=== PATIENT | female | born 1995 | race Hispanic/Latino ===

== ENCOUNTER 2016-10-18 10:33 | Emergency (ER) | payer MEDICAID, SELFPAY ==
[2016-10-18] MEDS ORDERED: Adacel (T-DAP) 0.5 ML VIAL ONE (11:12)
[2016-10-18] MEDS ORDERED: Triple Antibiotic Oint 1 GM Packet ONE (11:12)
[2016-10-18] MEDS ORDERED: Naproxen 500 MG TAB ONE (11:12)
[2016-10-18] MEDS ORDERED: Cephalexin 500 MG CAP ONE (11:12)
== END 2016-10-18 11:30 | disposition home or self-care (01) ==
LOC: MADERS 10:33
DX: T22.212A Burn of second degree of left forearm, initial encounter (principal); Z87.442 Personal history of urinary calculi; X19.XXXA Contact with other heat and hot substances, initial encounter
CPT/HCPCS: 90715; 99283

== ENCOUNTER 2023-12-03 14:56 | Emergency (ER) | payer MEDICAID, SELFPAY ==
[2023-12-03] MEDS ORDERED: diphenhydrAMINE 50 MG/ML VIAL ONE (16:08)
[2023-12-03] MEDS ORDERED: Acetaminophen 500 MG TAB ONE (16:08)
[2023-12-03] MEDS ORDERED: Ketorolac Tromethamine 30 MG (1 mL) VIAL ONE (16:08)
[2023-12-03] MEDS ORDERED: Sodium Chloride 0.9% 1,000 ML ONE ×2 (16:09→17:11)
[2023-12-03] MEDS ORDERED: Promethazine HCl 25 MG/ML VIAL ONE (16:09)
[2023-12-03 16:11] LABS: INR-International Normal Ratio 1.2; Prothrombin Time 14.9 sec (12.0-14.7)
[2023-12-03 16:12] LABS: PTT 33.1 sec (22.9-36.1)
[2023-12-03 16:13] LABS: BHCG - Serum Negative (NEGATIVE); Pregs Control Background? CLEAR/WHITE (CLR/WHITE); Pregs Control Bar Appear? YES (CONTROL BAR)
[2023-12-03 16:23] LABS: ALT (SGPT) 19 U/L (8-55); AST (SGOT) 16 U/L (5-34); Albumin 3.7 g/dL (3.5-5.0); Alkaline Phosphatase 63 U/L (40-110); Anion Gap 15 mmol/L (10-20); BUN (Urea Nitrogen) 16 mg/dL (7.0-18.7); Bilirubin, Total 0.7 mg/dL (0.2-1.2); Calc. Creatinine Clearance 0 mL/min (70-130); Calcium 8.6 mg/dL (7.8-10.44); Carbon Dioxide 19 mmol/L (22-29); Chloride 107 mmol/L (98-107); Estimated GFR 101; Globulin 3.8 g/dL (2.4-3.5); Glucose 100 mg/dL (70-105); Lipase 30 U/L (8-78); Potassium 3.5 mmol/L (3.5-5.1); Protein, Total 7.5 g/dL (6.0-8.3); Sodium 137 mmol/L (136-145)
[2023-12-03 16:24] LABS: Troponin I Less than 0.010 ng/mL (< 0.028)
[2023-12-03 16:35] LABS: Band 4 % (5-11); Hematocrit 41.8 % (36.0-47.0); Hemoglobin 13.2 g/dL (12.0-16.0); Lymphocytes 8 % (21-51); MDiff Complete? YES; Mean Corpuscular HGB CONC 31.7 g/dL (32.0-36.0); Mean Corpuscular Hemoglobin 27.1 pg (27.0-31.0); Mean Corpuscular Volume 85.6 fl (78.0-98.0); Mean Platelet Volume 8.7 fL (7.4-10.4); Monocytes 3 % (0-10); Neutrophil 75 % (42-75); Platelet Count 155 10x3/uL (130-400); RBC Distribution Width 14.2 % (11.5-14.5); Red Blood Cell (RBC) Count 4.88 mill/uL (4.20-5.40); White Blood Cell (WBC) Count 9.3 10x3/uL (4.8-10.8)
[2023-12-03 16:36] LABS: Manual Diff?? YES; Platelet Adequacy Comment Appears Adequate; RBC Morph Comment Within Normal Limits; Reactive Lymphocytes 10 % (0-10)
[2023-12-03] MEDS ORDERED: Sodium Chloride 0.9% 500 ML ONE (17:11)
[2023-12-03 17:44] LABS: Influenza A by NAA Not Detected (NotDetected); Influenza B by NAA Not Detected (NotDetected); SARS-CoV-2 NAA Rapid Test Not Detected (NotDetected)
[2023-12-03 18:13] LABS: Bilirubin Negative (Negative); Blood, Urine Negative (Negative); Glucose, Urine (Dipstick) Negative (Negative); Ketone, Urine Negative (Negative); Leukocyte Moderate (Negative); Nitrite Negative (Negative); Protein, Urine (Dipstick) Negative (Neg-Trace); Specific Gravity, Urine 1.015 (1.005-1.030); Urobilinogen 0.2 mg/dL (Less than 2)
[2023-12-03 18:20] LABS: Clarity Hazy (Clear)
[2023-12-03 18:27] LABS: Bacteria/HPF Rare-Few HPF (None Seen); CAUTI Indications for Culture Dysuria,urgency,freq; Mucous/LPF Few LPF (<2+); RBC/HPF None Seen HPF (0-3); Urine Culture Reflex Yes Yes
[2023-12-03] MEDS ORDERED: Sodium Chloride 0.9% 100 ML ONE (18:40)
[2023-12-03] MEDS ORDERED: cefTRIAXone (ROCEPHIN) 1 GM VIAL ONE (18:40)
== END 2023-12-03 21:11 | disposition home or self-care (01) ==
LOC: MADERS 14:56
DX: N39.0 Urinary tract infection, site not specified (principal); R65.10 Systemic inflammatory response syndrome (SIRS) of non-infectious origin without acute organ dysfunction; R51.9 Headache, unspecified
CPT/HCPCS: 70450; 71045; 80053; 81001; 83605; 83690; 84443; 84484; 84703; 85025; 85610; 85730; 87040; 87086; 93005; 96365; 96375; J0696; J1200; J1885; J2550; J3490; J7030; J7050